=== PATIENT | female | born 1980 | race American Indian/Alaskan Native ===

== ENCOUNTER 2016-11-19 08:06 | Outpatient (CLI) | payer MEDICAID ==
[2016-11-19 08:52] VITALS: BP 112/73
[2016-11-19] MEDS ORDERED: LACTATED RINGERS 500 ML IV ONE (08:57)
[2016-11-19 11:08] LABS: Bilirubin,Urine NEG (Negative); Blood,Urine NEG (Negative); Ketones,Urine 20 mg/dL (Negative); Leukocyte Esterase,Urine TR (Negative); Nitrite,Urine NEG (Negative); Protein,Urine <15 mg/dL mg/dL (Negative); Urobilinogen,Urine < 2.0 mg/dL (<2.0)
[2016-11-19 11:26] LABS: Bacteria,Urine 3+ /HPF (Negative)
== END 2016-11-19 10:10 | disposition home or self-care (01) ==
LOC: TRG 08:06
PROVIDERS: ATTEND Obstetrics & Gynecology
DX: O09.522 Supervision of elderly multigravida, second trimester (principal); O47.02 False labor before 37 completed weeks of gestation, second trimester; Z3A.22 22 weeks gestation of pregnancy
CPT/HCPCS: 59025; 81001; 96360; J7120